=== PATIENT | female | born 1985 | race Hispanic/Latino ===

== ENCOUNTER 2017-04-24 11:31 | Emergency (ER) | payer SELFPAY ==
[2017-04-24] MEDS ORDERED: Lorazepam 2 MG/ML VIAL ONE (11:43)
--- NOTE | 2017-05-13 17:34 | EKG ---
Test Reason : DRUG USE Blood Pressure : / mmHG Vent. Rate : 111 BPM Atrial Rate : 111 BPM P-R Int : 130 ms QRS Dur : 074 ms QT Int : 360 ms P-R-T Axes : 079 074 042 degrees QTc Int : 489 ms Sinus tachycardia Possible Left atrial enlargement Borderline ECG Confirmed by ALISHA GAONA ([id number]), design editor SYLVIE BENJAMIN ([id number] on 05/13/2017 5:33:45 PM Referred By: Confirmed By:ALISHA GAONA
== END 2017-04-24 14:51 | disposition home or self-care (01) ==
LOC: ERS 11:31
DX: F15.10 Other stimulant abuse, uncomplicated (principal); F17.210 Nicotine dependence, cigarettes, uncomplicated
CPT/HCPCS: 93005; 96372; J2060

== ENCOUNTER 2018-05-30 18:39 | Emergency (ER) | payer SELFPAY | END 2018-05-30 19:54 | disposition home or self-care (01) | LOC: ERS 18:39 | DX: H65.91 Unspecified nonsuppurative otitis media, right ear (principal); F17.210 Nicotine dependence, cigarettes, uncomplicated | CPT/HCPCS: 99282 ==